=== PATIENT | male | born 2000 | race Caucasian/White ===

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

== ENCOUNTER 2024-05-15 02:49 | Emergency (ER) | payer OTHER ==
[~2024-05-15] VITALS: Ht 190.5 cm; Wt 72.5 kg
[2024-05-15 04:35] VITALS: BP 134/81; TEMP 99; O2SAT 99
== END 2024-05-15 05:10 | disposition home or self-care (01) ==
LOC: M ED 02:49
DX: S51.811A Laceration without foreign body of right forearm, initial encounter (principal); W25.XXXA Contact with sharp glass, initial encounter; Y92.9 Unspecified place or not applicable; Y93.9 Activity, unspecified; Y99.9 Unspecified external cause status; Z88.0 Allergy status to penicillin

== ENCOUNTER 2025-01-26 07:22 | Inpatient (IN) | payer OTHER ==
[~2025-01-26] VITALS: Ht 190.5 cm; Wt 60.2 kg
[~2025-01-26 07:22] MED LIST: ABIL1TAB11 PO; TRAZ-252 PO
[2025-01-26 09:52] LABS: PLATELET COUNT, AUTOMATED 361 10^3/uL (150-450)
[2025-01-26 10:17] LABS: ETHYL ALCOHOL (ETHANOL) < 0.003 % (0.000-0.010)
[2025-01-26 10:18] LABS: SALICYLATE LEVEL < 3.0 MG/DL (<30)
[2025-01-26 10:19] LABS: ALT/SGPT 19 U/L (7.0-40); AST/SGOT 30 U/L (<34); CALCIUM LEVEL 9.7 MG/DL (8.5-10.1); CARBON DIOXIDE LEVEL 28 MMOL/L (20-31); CHLORIDE LEVEL 103 MMOL/L (98-107); CREATININE FOR GFR 0.82 MG/DL (0.70-1.30); GLOMERULAR FILTRATION RATE > 90.0 (>60); POTASSIUM SERUM 4.0 MMOL/L (3.5-5.1); SODIUM LEVEL 143 MMOL/L (136-145)
[2025-01-26 10:53] LABS: AMPHETAMINES LEVEL URINE NEGATIVE (NEGATIVE); BARBITURATES URINE NEGATIVE (NEGATIVE); BENZODIAZEPINES URINE NEGATIVE (NEGATIVE); COCAINE METABOLITE URINE NEGATIVE (NEGATIVE); METHADONE URINE NEGATIVE (NEGATIVE); OPIATES URINE NEGATIVE (NEGATIVE); PHENCYCLIDINE URINE NEGATIVE (NEGATIVE)
[2025-01-26 10:56] LABS: CANNABINOIDS URINE POSITIVE (NEGATIVE)
[2025-01-26] MEDS ORDERED: ARIP1TAB6 PO (11:05)
[2025-01-26] MEDS ORDERED: TRAZ-186 PO (11:05)
[2025-01-26] MEDS ORDERED: HOME MED LIST COMPLETE! XX SCH (11:05)
[2025-01-26] MEDS ORDERED: MAALOX 30 ML SUSP *UDC PO PRN (14:40)
[2025-01-26] MEDS ORDERED: MOM 30 ML SUSPENSION UDC PO PRN (14:40)
[2025-01-26] MEDS ORDERED: ACETAMINOPHEN 325 MG TAB PO PRN (14:40)
[2025-01-26] MEDS: HALOPERIDOL 5 MG TAB PO STA (17:43)
[2025-01-26] MEDS: NICOTINE 14 MG/24 HR TRANSDERMAL TD SCH (17:46)
[2025-01-27 06:47] VITALS: BP 135/63; TEMP 97.5; O2SAT 100
[2025-01-27 15:08] VITALS: BP 150/78; TEMP 98.1; O2SAT 100
[2025-01-27] MEDS: IBUPROFEN 400 MG TAB PO PRN (15:43)
[2025-01-27] MEDS: traZODone 50 MG TAB PO PRN (20:13)
[2025-01-27] MEDS: HALOPERIDOL 5 MG TAB PO PRN (20:13)
[2025-01-27] MEDS: LIDOCAINE 5% PATCH TD SCH (20:59)
[2025-01-28 06:08] VITALS: BP 136/94; TEMP 97.5; O2SAT 100
[2025-01-28 14:00] VITALS: BP 138/80; TEMP 97.3; O2SAT 100
[2025-01-29 06:31] VITALS: BP 127/75; TEMP 97.2; O2SAT 100
[2025-01-29 14:30] VITALS: BP 132/72; TEMP 97.4; O2SAT 100
[2025-01-30 06:08] VITALS: BP 134/79; TEMP 97.6; O2SAT 99
[2025-01-30 16:19] VITALS: BP 138/62; TEMP 99.1; O2SAT 100
[2025-01-31 07:01] VITALS: BP 118/65; TEMP 97.4; O2SAT 100
[2025-01-31] MEDS: ARIPiprazole MONOHYDRATE 400 MG INJ (FREE PSY INPT ONLY) IM ONE (09:09)
[2025-01-31] MEDS ORDERED: ARIP400S IM (10:09)
== END 2025-01-31 13:35 | disposition home or self-care (01) | DRG 885 ==
LOC: M ED 07:22 → M ED INP 14:39 → M PSY 16:13
PROVIDERS: ADMIT General Practice; ATTEND General Practice
DX: F29 Unspecified psychosis not due to a substance or known physiological condition (principal); F10.90 Alcohol use, unspecified, uncomplicated; F12.90 Cannabis use, unspecified, uncomplicated; F43.10 Post-traumatic stress disorder, unspecified; I10 Essential (primary) hypertension; M54.9 Dorsalgia, unspecified; G89.29 Other chronic pain; F41.9 Anxiety disorder, unspecified; Z87.820 Personal history of traumatic brain injury; Z56.0 Unemployment, unspecified; Z79.899 Other long term (current) drug therapy; Z88.0 Allergy status to penicillin